=== PATIENT | female | born 1990 | race African-American/Black ===

== ENCOUNTER 2016-06-27 22:10 | Inpatient (IN) | payer OTHER ==
[~2016-06-27] VITALS: Ht 172.7 cm; Wt 83.5 kg
[2016-06-27] MEDS ORDERED: Ondansetron 2 mg/mL 2 mL Inj IVPUSH PRN ×2 (23:10→23:25)
[2016-06-27] MEDS ORDERED: Penicillin G K Inj 5,000,000 UNITS in Dextrose 5% Minibag Plus 100 ML IV ONE (23:10)
[2016-06-27] MEDS ORDERED: Methylergonovine 0.2 mg/mL Inj IM PRN (23:10)
[2016-06-27] MEDS ORDERED: fentaNYL-PF 50 mCg/mL 2 mL Inj IVPUSH PRN ×2 (23:10→23:25)
[2016-06-27] MEDS ORDERED: Oxytocin 10 Unit/mL Inj IM PRN (23:10)
[2016-06-27] MEDS ORDERED: Hemorrhage Kit, Post Partum XX ONE (23:10)
[2016-06-27] MEDS ORDERED: Carboprost 250 mCg/mL Inj IM PRN (23:10)
[2016-06-27] MEDS ORDERED: Sodium Chloride LOK Flush 10 mL Syringe IVFLUSH PRN (23:10)
[2016-06-27] MEDS ORDERED: Oxytocin 30 Units/500 mL LR 30 UNITS in IV Premix 1 EACH IV PRN (23:10)
--- NOTE | 2016-06-27 23:22 | PCM.HPANE ---
Patient Data Surgeon Admitting Provider:Ben Marshall MD Attending Provider:Ben Marshall MD Primary Care Physician:Tammie Other Provider:Joel Mabry Anesthesia Reason for Visit Term Labor TERM LABOR Ht/WT & BMI Body Mass Index Allergies Coded Allergies: No Known Allergies (Unverified , 06/27/16) Past Anesthesia History Anesthesia History: Denies:: Abnormal Airway, Difficult Intubation Diabetes History Hx Diabetes?: No MRSA MRSA: No Medications Hypertension Medication: No Home Meds Incl Beta Julio C: No History History of ENT Problems?: No HEENT History: Denies:: Abnormal Airway Difficult Intubation Hx of Heart Problems?: No Cardiovascular History: Denies:: AICD Abdominal Aortic Aneurism Atrial Fibrillation Cardiac Surgery Chest Pain Congestive Heart Failure Coronary Artery Disease Edema Heart Murmur Hypertension Irregular Heartbeat Pacemaker Peripheral Vascular Rheumatic Fever Thrombophlebitis Valvular Heart Disease Hx of Respiratory Problem?: No Respiratory History: Denies:: Asthma COPD Chest Surgery Cough Dyspnea Emphysema Hemoptysis Oxygen Administration Pneumonia Pulmonary Embolism Tuberculosis Use of C-PAP Machine Use of Inhalers / NEBS Hx Neurologic Problems?: No Neurological History: Denies:: Alzheimer's Disease CVA Dementia Dizziness Headaches Multiple Sclerosis Parkinson's Disease Peripheral Neuropathy Seizures TIA Hx of GI Problems?: No Gastrointestinal History: Denies:: Cirrhosis Diverticulitis Gall Bladder Disease Gastroesphageal Reflux Gastrointestinal Bleeding Heartburn Hepatitis Hiatal Hernia Liver Disease Rectal Bleeding Genitourinary History: Denies:: HX of Hemodialysis Kidney Stones Urinary Tract Infection Female Hx: Positive for:: Currently Skin History: Denies:: History Skin Disorders? Pressure Ulcers Hx Musculoskeletal Problems?: No Musculoskeletal History: Denies:: Back Injury Degenerative Joint Fibromyalgia Joint Replacement Musculoskeletal Trauma Myasthenia Gravis Osteoarthritis Rheumatoid Arthritis Systemic Lupus Hx of Psycho/Social Problems?: No Psycho Social History: Denies:: Anxiety Bipolar Disorder Hx Depression Suicide Attempt Hx Surgeries?: No Hx Any Other Health Problems?: No Hx Diabetes: No Smoking Status: Never Smoker Stop/Bang Treated for Sleep Apnea?: No Do You Have a CPAP Machine?: No FATEMEH Risk Assessment: Low Risk, <3 Yes Risk Assessment Category Category 1A: Patient has history of documented sleep apnea, and HAS NOT received any narcotic, sedative or anesthesia administration during this stay. Category 1B: Patient has history of documented sleep apnea, and HAS received any narcotic , sedative or anesthesia administration during this stay Category 2: Patient has SUSPECTED Obstructive Sleep Apnea, and HAS received any narcotic , sedative or anesthesia administration during this stay. Category 3: Patient has SUSPECTED Obstructive Sleep Apnea and HAS NOT received narcotic, sedative or anesthesia administration during this stay. Category 4: Outpatient in Procedural Areas with known sleep apnea or who screen positive for High Risk via the STOP/BANG questionnaire. Exam Exam General Appearance: Alert, Oriented X3, Cooperative, No Acute Distress HEENT/AIRWAY: MP 2 Lungs: Clear to Auscultation, Normal Air Movement Heart: Exam Unremarkable, Regular Rate/Rhythm, No Murmurs/Rubs/Gallops Plan Impression Patient chart reviewed, patient interviewed and anesthestic plan with risks, benefits, and alternatives discussed, and informed consent obtained. ASA Physical Status: ASA1 Normal Healthy Anesthetic Plan: Epidural Bene/Risks/Altern/Consents: Yes HP Complete Prior to Induction: Yes Bryce Booth MD Jun 27, 2016 23:22
[2016-06-27] MEDS ORDERED: EPHEDrine Sulfate 50 mg/mL Inj IV PRN (23:25)
[2016-06-27] MEDS ORDERED: Atropine 1 mg/mL Inj IVPUSH PRN (23:25)
[2016-06-27 23:46] LABS: Mean Corpuscular Hemoglobin 29.1 pg (27.0-35.0); Mean Corpuscular Volume 88.3 fL (81-100)
[2016-06-27] MEDS: Lactated Ringer's 1,000 ML IV PRN (23:58)
[2016-06-28] MEDS ORDERED: fentaNYL 2 mCg/mL-Bupivicaine 0.125% 100 mL Premix EPIDURAL ONE (00:10)
[2016-06-28] MEDS: Lactated Ringer's 1,000 ML IV PRN ×2 (01:00→04:00)
[2016-06-28] MEDS ORDERED: Penicillin G K Inj 3,000,000 UNITS in IV Premix 1 EACH IV SCH (04:30)
--- NOTE | 2016-06-28 05:09 | HP ---
[address] [address] HISTORY AND PHYSICAL PATIENT: RAMON LINK : 1990 MR#: [id number] ADMIT: 06/27/2016 JOB ID: [id number] IDENTIFYING DATA/CHIEF COMPLAINT: The patient is a 26-year-old, G1, P0, at term who presents with spontaneous labor. HISTORY OF PRESENT ILLNESS: Patient followed prenatally at the [facility], though [facility] currently [facility], and she was unable to deliver closer to home, so comes in to the [facility] in labor. She is at 40 and 6/7 weeks based on good dates with LMP consistent with 11 week ultrasound. She has been having contractions over the last couple of days. Did pass mucus plug yesterday. No gush of water and no bleeding. movements have been normal. She has otherwise been feeling well. ALLERGIES: No known drug allergies. OUTPATIENT MEDICATIONS: vitamins, ranitidine, as well as Tylenol and Tums as needed. PAST MEDICAL HISTORY: Noncontributory. She has never any hospitalizations or surgeries. She has no history of lung problems, asthma, hypertension, or bleeding problems. HISTORY: Uncomplicated, dates as noted above. Labs: Blood type: A positive. Antibody screen negative, rubella immune, RPR nonreactive. Hepatitis B surface antigen and nonreactive during growth. Urine culture negative. GC/chlamydia negative. A "vaginal" Pap smear done June 29, 2015 "quad screen and cystic fibrosis screening" both negative. Varicella titer showed immunity. 1 hour GTT was normal at 96. GBS culture was positive. No HIV test noted in chart. SOCIAL HISTORY: Supportive partner, Gerald. The patient did drink alcohol on the weekends prior to . Also smoked a prior though stopped when she found out she was . No history of drug use and multiple screens for partner violence have been negative. OBJECTIVE: Vital signs are stable. She is in no acute distress. Pleasant, cooperative. She is currently resting very comfortably after placement of epidural. Cardiovascular regular rate and rhythm. S1, S2. No murmurs, gallops, or rubs. Lungs are showed minor crackles or wheezes. Her abdomen is soft, nontender. Estimated weight is approximately 8 pounds. Lower extremities are without edema. Cervical exam shows 6 cm -2 station, well applied 95% vertex. The ROM is performed with light meconium staining. After rupture moves to -1 station. Otherwise exam unchanged. Infant strip in the 150s at baseline. She has a few scattered decels, but maintained moderate variability. Decels appear to be early relates, though they are quite intermittent, and the question of early relates has to do with picking up the contraction pattern. CBC shows white count 9.6, hematocrit 38.5, platelets 268. ASSESSMENT AND PLAN: A 26-year-old, G1, P0, in active labor. Her pain is well controlled currently with an epidural. Rupture has been performed. We have administered penicillin already more than 4 hours for GBS positive status. Continue to administer penicillin per protocol. Continue current management, anticipate vaginal delivery. MTDD
[2016-06-28] MEDS: Lactated Ringer's 1,000 ML IV SCH ×2 (08:09→16:09)
[2016-06-28] MEDS ORDERED: Benzocaine (Dermoplast) 20% 60 Gm Spray TOPICAL PRN (08:10)
[2016-06-28] MEDS ORDERED: Oxytocin 10 Unit/mL Inj IM PRN (08:10)
[2016-06-28] MEDS ORDERED: Carboprost 250 mCg/mL Inj IM PRN (08:10)
[2016-06-28] MEDS ORDERED: Hemorrhage Kit, Post Partum XX ONE (08:10)
[2016-06-28] MEDS ORDERED: Witch Hazel-Glycerin Pads TOPICAL PRN (08:10)
[2016-06-28] MEDS ORDERED: LANOlin HPA 7 Gm Ointment TOPICAL PRN (08:10)
[2016-06-28] MEDS ORDERED: Methylergonovine 0.2 mg/mL Inj IM PRN (08:10)
[2016-06-28] MEDS ORDERED: Oxytocin 30 Units/500 mL LR 30 UNITS in IV Premix 1 EACH IV PRN (08:10)
[2016-06-28] MEDS: Sodium Chloride LOK Flush 10 mL Syringe IVFLUSH SCH ×3 (08:30→16:30)
--- NOTE | 2016-06-28 12:35 | PCM.ANEP1 ---
Post Anesthesia Phase 1 PACU Phase 1 Assessment Anesthetic Administered: Epidural Level of Alertness: Awake, talking ANDRE's with Equal Strength: Yes Pain: No Nausea or Vomiting: No Oxygen Delivery: Room Air Lungs: Clear to Auscultation, Normal Air Movement Dermatome Level: Full Sensation Summary epidural catheter out tip intact Jordy Gomez MD Jun 28, 2016 12:35
--- NOTE | 2016-06-28 12:37 | PCM.ANEP2 ---
Post Anesthesia Evaluation ASA/CMS Post Anesthesia VS in Patient's Normal Range?: Yes Resp Stable; Airway Patent?: Yes CV Function & Hydration Stable: Yes Mental Status Recovered?: Yes Pain control Satisfactory?: Yes N/V Control Satisfactory?: Yes Jordy Gomez MD Jun 28, 2016 12:36
--- NOTE | 2016-06-28 13:03 | OP ---
[address] [address] OPERATIVE REPORT PATIENT: RAMON LINK : 1990 MR#: [id number] ADMIT: 06/27/2016 JOB ID: [id number] DATE OF SURGERY: 06/28/2016 PREOPERATIVE DIAGNOSIS(ES): POSTOPERATIVE DIAGNOSIS(ES): SURGEON: Ben Marshall MD DESCRIPTION OF PROCEDURE: Stage 1: For details of admission, see H and P by this provider. Briefly, patient had been receiving medical care at [facility]. Their Labor and Delivery unit is currently closed, so she came to [facility] in active labor. Total duration of first stage approximately 7-1/2 hours. Infant tolerated well with some occasional decels and some variables but maintaining good variability. Category 2 strip. Pain control with epidural. The patient received two doses of penicillin, total of 7 hours of penicillin prior to delivery for GBS positive status. Rupture of membranes approximately 6 hours prior to delivery spontaneously. Forebag was also ruptured with showing light meconium at about 3-1/2 hours prior to delivery. Stage 2: Excellent pushing effort by patient. Delivery of a 7 pound 11 ounce (3489 g) baby girl in ALBER position, Apgars 8 and 9 over intact perineum , though with a left labial tear. Infant delivered to maternal abdomen and cord clamped after 60 second delay and cut. Stage 3: Pitocin started after delivery of . Total duration approximately 10 minutes. Placenta delivered intact, with three-vessel cord in Schultze presentation. Minimal uterine bleeding, though moderate amount of bleeding from a left labial tear which did extend toward the sulcus. Hemostasis obtained with initial sutures, and running 3-0 Vicryl used to close tear with good hemostasis and tissue approximation. Anesthesia with epidural was adequate for this repair. EBL 350 mL. At time of dictation, both and mother are doing well in recovery. MTDD
[2016-06-28] MEDS: Ascorbic Acid 500 mg Tablet PO SCH (17:30)
[2016-06-29] MEDS: Lactated Ringer's 1,000 ML IV SCH (00:09)
[2016-06-29] MEDS: Sodium Chloride LOK Flush 10 mL Syringe IVFLUSH SCH (00:30)
[2016-06-29 06:32] LABS: Mean Corpuscular Hemoglobin 29.6 pg (27.0-35.0); Mean Corpuscular Volume 89.1 fL (81-100)
[2016-06-29] MEDS: Ascorbic Acid 500 mg Tablet PO SCH (08:24)
--- NOTE | 2016-06-29 11:12 | PCM.DC.OB ---
Obstetrical Discharge Summary Date of Service Jun 29, 2016 Date of hospital admission Jun 27, 2016 at 23:04 Date of Discharge: Jun 29, 2016 Providers Admitting Physician: Ben Marshall MD Primary Care Physician: Nopcp Attending Physician: Ben Marshall MD Diagnosis at Time of Discharge Normal vaginal delivery at term; adequately treated GBS positive status. Problems: Brief History and Physical: see notes by Dr. Marshall for details; pt was admitted for active labor at term on 06/27/16, had a normal vaginal delivery yesterday morning, after having received 2 doses of penicillin for GBS treatment; she did well on day 1 today. Hospital Course: see notes by Dr. Marshall for details; pt was admitted for active labor at term on 06/27/16, had a normal vaginal delivery yesterday morning, after having received 2 doses of penicillin for GBS treatment; she did well on day 1 today. Discharge Medications: ibuprofen, Colace. Disposition home with Follow-up plan f/u with Dr. Jones for check in 4 to 6 weeks, sooner as needed. Discharge Diet: Heart Healthy Discharge Activity-General: Pelvic Rest for 6 weeks Leidy Pham MD Jun 29, 2016 11:12 Leidy Pham MD Jun 29, 2016 11:12
--- NOTE | 2016-06-29 11:27 | PCM.DIOB ---
Obstetrical Disch Instruction Date of Service: Jun 29, 2016 Dates of Hospitalization Date of Hospital Admission Jun 27, 2016 at 23:04 Providers Admitting Physician: Ben Marshall MD Primary Care Physician: Nopcp Attending Physician: Ben Marshall MD Discharge Diagnosis Discharge Diagnosis Normal vaginal delivery at term; treated GBS positive status. Problems: Diet Discharge Diet: Heart Healthy Activity Discharge Activity-General: Pelvic Rest for 6 weeks Dressing and Incisional Care Hygiene: May shower Follow Up Plan Follow Up Plan f/u with Dr. Jones for check in 4 to 6 weeks, sooner as needed. Call your provider for: Fever or Chills, Shortness of breath, Heavy vaginal bleeding, Heavy bleeding, Epigastric pain, Excessive constipation, Vaginal discomfort, Red painful breasts Leidy Pham MD Jun 29, 2016 11:26
[2016-06-29 15:52] VITALS: BP 115/59; PULSE 92; RESP 18
--- NOTE | 2016-06-29 16:07 | PCM.PNOBPP ---
Subjective Date of Service Jun 29, 2016 Post : Spontaneous Vaginal Delivery Lochia: Normal Pain Management: PO pain meds Gastrointestinal: Good Appetite Postop Activity: Ambulating Independently Group B Strep Results: Positive Blood Type: A RH Type: Positive Labs Laboratory Tests 06/29/16 06:05: White Blood Count 14.0, Red Blood Count 3.75, Hemoglobin 11.1, Hematocrit 33.4, Mean Corpuscular Volume 89.1, Mean Corpuscular Hemoglobin 29.6, Mean Corpuscular Hemoglobin Concent 33.2, Red Cell Distribution Width 13.7, Platelet Count 225 Exam Vital Signs Vital Signs Vital Signs Date Time Temp Pulse Resp B/P Pulse Ox O2 Delivery O2 Flow Rate FiO2 06/29/16 15:52 37.1 92 18 115/59 Vital Signs: VS reviewed, stable Exam Abdomen: Fundus firm : Voiding without difficulty Extremities: No cords, Normal pulses Lungs: Clear to Auscultation Heart: Exam Unremarkable, Regular Rate/Rhythm, Normal S1, Normal S2, No Murmurs /Rubs/Gallops General: Alert, Oriented X3, Cooperative, No Acute Distress OB Post Assessment/Plan Assessment doing well on day 1; routine care. Pain Evaluation: Adequate Pain Control Post plan: Continue routine post care Leidy Pham MD Jun 29, 2016 16:07
== END 2016-06-29 17:42 | disposition home or self-care (01) | DRG 775 ==
LOC: FBCO 22:10 → FBC 23:04
PROVIDERS: ADMIT Family Medicine; ATTEND Family Medicine
PROC: 10E0XZZ Delivery of Products of Conception, External Approach (ICD-10-PCS; principal; 2016-06-28)
PROC: 0HQ9XZZ Repair Perineum Skin, External Approach (ICD-10-PCS; 2016-06-28)
PROC: 10907ZC Drainage of Amniotic Fluid, Therapeutic from Products of Conception, Via Natural or Artificial Opening (ICD-10-PCS; 2016-06-28)
DX: O70.0 First degree perineal laceration during delivery (principal); O99.824 Streptococcus B carrier state complicating childbirth; Z3A.40 40 weeks gestation of pregnancy; O76 Abnormality in fetal heart rate and rhythm complicating labor and delivery; Z37.0 Single live birth